=== PATIENT | female | born 1985 | race Caucasian/White ===

== ENCOUNTER 2017-06-21 20:22 | Emergency (ER) | payer OTHER ==
[~2017-06-21] VITALS: Ht 165.1 cm; Wt 53.9 kg
[2017-06-21 21:12] LABS: HEMATOCRIT 45.9 % (34.6-47.8); HEMOGLOBIN 15.1 g/dL (11.7-16.4); WHITE BLOOD COUNT 12.4 x10^3/uL (3.4-10)
[2017-06-21 21:56] LABS: ASPARTATE AMINO TRANSFERASE 15 U/L (15-37); BLOOD UREA NITROGEN 13 mg/dL (7-18)
[2017-06-21] MEDS ORDERED: SODIUM CHLORIDE 0.9% 1,000ML IVBOLUS ONE (23:00)
[2017-06-21] MEDS ORDERED: SODIUM CHLORIDE FLUSH 10ML SYR IVF ONE (23:00)
[2017-06-21] MEDS ORDERED: METHOTREXATE/PF 25 MG/ML, 2ML IM ONE (23:30)
[2017-06-22 01:15] VITALS: BP 97/62
== END 2017-06-22 01:17 | disposition home or self-care (01) ==
LOC: ED 21:46
DX: O00.10 Tubal pregnancy without intrauterine pregnancy (principal); O03.4 Incomplete spontaneous abortion without complication; Z3A.01 Less than 8 weeks gestation of pregnancy
CPT/HCPCS: 36415; 80053; 84702; 85025; 96360; 96361; 96372; 99285; J7030; J9250

== ENCOUNTER 2017-06-23 21:08 | Emergency (ER) | payer OTHER ==
[~2017-06-23] VITALS: Ht 167.6 cm; Wt 53.6 kg
[2017-06-23] MEDS ORDERED: ONDANSETRON 2MG/ML, 2ML IVPush ONE (21:30)
[2017-06-23] MEDS ORDERED: KETOROLAC 30 MG/1 ML IVPush ONE (21:30)
[2017-06-23] MEDS ORDERED: ONDANSETRON 2MG/ML, 2ML ONE (21:31)
[2017-06-23] MEDS ORDERED: KETOROLAC 30 MG/1 ML ONE (21:31)
[2017-06-23 21:41] LABS: HEMATOCRIT 47.6 % (34.6-47.8); HEMOGLOBIN 15.8 g/dL (11.7-16.4); WHITE BLOOD COUNT 17.5 x10^3/uL (3.4-10)
[2017-06-23 21:48] LABS: ASPARTATE AMINO TRANSFERASE 11 U/L (15-37); BLOOD UREA NITROGEN 13 mg/dL (7-18)
[2017-06-24] MEDS ORDERED: ONDANSETRON 2MG/ML, 2ML ONE (00:08)
[2017-06-24 00:17] VITALS: BP 100/72
[2017-06-24] MEDS ORDERED: ONDANSETRON 2MG/ML, 2ML IVPush ONE (00:30)
== END 2017-06-23 22:42 | disposition home or self-care (01) ==
LOC: ED 21:32
DX: O00.90 Unspecified ectopic pregnancy without intrauterine pregnancy (principal)
CPT/HCPCS: 36415; 76801; 80053; 81003; 84702; 85025; 96374; 96375; 96376; 99285; J1885; J2405